=== PATIENT | male | born 1940 | race Caucasian/White ===

== ENCOUNTER → 2021-08-12 | Outpatient (CLI) | payer MEDICARE, SELFPAY ==
--- NOTE | 2021-08-12 08:54 | EKG12_ITS ---
Test Reason : PRE-OP Blood Pressure : / mmHG Vent. Rate : 069 BPM Atrial Rate : 069 BPM P-R Int : 166 ms QRS Dur : 096 ms QT Int : 410 ms P-R-T Axes : -27 -34 -01 degrees QTc Int : 439 ms Normal sinus rhythm Left axis deviation Poor R wave progression Abnormal ECG Confirmed by RAUDEL ALONSO, CHELSEY ([id number]), script editor POLI FLORENTINO ([id number]) on 08/13/2021 10:04:25 AM Referred By: Eliecer Dominique Confirmed By:CHELSEY STARKS MD
== END | disposition home or self-care (01) ==
LOC: PSN 08:51
PROVIDERS: PCP Family Medicine; Referring Provider Urology; Visit Provider Urology
DX: Z01.810 Encounter for preprocedural cardiovascular examination (principal)
CPT/HCPCS: 93005

== ENCOUNTER → 2021-08-26 | Outpatient (CLI) | payer MEDICARE, SELFPAY ==
[2021-08-26 13:04] LABS: Hematocrit 47.7 % (40-54); Hemoglobin 13.4 g/dL (13.0-16.5); Mean Corp Hgb Conc 28.1 g/dL (32-36); Mean Corpuscular Hgb 21.6 pg (27.0-32.0); Mean Corpuscular Volume 76.9 fL (80-94); Platelet Count 365 K/mm3 (150-450); RBC Distribution Width CV 18.5 % (11.6-14.6); RBC Distribution Width SD 48.1 fl (35.1-43.9); White Blood Count 12.9 K/mm3 (4.4-11.0)
[2021-08-26 13:31] LABS: Anion Gap 8 (5-15); BUN 16 mg/dL (7-18); BUN/Creat Ratio 14.5 RATIO (10-20); Calcium,Total 8.7 mg/dL (8.5-10.1); Chloride 108 mmol/L (98-107); EST Glomerular Filtration Rate 68 mL/min (>60); Est Glom Filt Rate - Afr Amer 83 mL/min (>60); Glucose 110 mg/dL (74-106); Potassium 3.9 mmol/L (3.5-5.1); Sodium Level 140 mmol/L (136-145)
== END | disposition home or self-care (01) ==
PROVIDERS: PCP Family Medicine; Referring Provider Urology; Visit Provider Urology
DX: Z01.812 Encounter for preprocedural laboratory examination (principal)
CPT/HCPCS: 36415; 80048; 85027

== ENCOUNTER 2021-08-29 19:48 | Emergency (ER) | payer MEDICARE, SELFPAY ==
[2021-08-29 19:49] VITALS: BP 133/94; PULSE 100; RESP 16; TEMP 36.4; O2SAT 98; BMI 30.7
[2021-08-29] MEDS: Lidocaine 1% (20 ml mdv) 20 ML Vial INFILT (21:40)
--- NOTE | 2021-08-29 21:45 | PCM.PN.GU ---
Subjective Subjective s/p right very large hydrocelectomy today came to ER with bleeding coming from FLORENTINO site and incision site at bedsidem prep and draped scrotum, open incision drained out hematoma and no active bleeding but large hematoma evacuated, FLORENTINO drain in placed, I did identify a bleeding vessel and suture ligated no more bleeding, then closed srotal hematoma in two layers, fluffs and dressing placed follow up next week to d/c FLORENTINO drain, Rx for cipro to gaurd against infection. Objective Data Objective Data Vital Signs: Vital Signs Temp Pulse Resp BP Pulse Ox O2 Del Method 97.5 F L 100 16 133/94 H 98 Room Air 08/29/21 19:49 08/29/21 19:49 08/29/21 19:49 08/29/21 19:49 08/29/21 19:49 08/29/21 19:49 Oxygen Delivery Method Room Air Weight: 83.915 kg Body Mass Index (BMI) 30.7
--- NOTE | 2021-08-29 22:03 | EX.ED.DYSGE1 ---
HPI History of Present Illness Chief Complaint: Wound Informant: patient Onset/Context/Timing Onset: Today Narrative Narrative: Patient presents secondary to scrotal bleeding. He had surgery today for a large right hydrocele. He has a FLORENTINO drain in place. He noted increased bleeding tonight came back in for evaluation. Dr. Dominique had called and let us know to evaluate the wound and call him if there was a complication with the surgical sites. [facility] Medical History Hydrocele Home Medications finasteride 5 mg tablet 5 mg PO DAILY 12/11/16 [History Last Taken Unknown] ciprofloxacin HCl 500 mg tablet (Cipro) 500 mg PO BID #10 tabs 08/29/21 [Rx Last Taken Unknown] Allergy/AdvReac Type Severity Reaction Status Date / Time No Known Allergies Allergy Verified 08/29/21 19:49 Social History Smoking Status: Never smoker ROS ROS ED Constitutional Constitutional ED: Denies chills or fever(s) Eyes Eyes: Denies change in vision or discharge from eye(s) ENT ENT ED: Denies discharge from eye(s), rhinorrhea or sore throat Cardiovascular Cardiovascular: Denies chest pain or palpitations Respiratory/Chest Respiratory/Chest: Denies cough or dyspnea Gastrointestinal Gastrointestinal: Denies abdominal pain, diarrhea, nausea or vomiting Genitourinary Genitourinary ED: Reports other Details: Scrotal bleeding ; Denies difficulty urinating or dysuria Musculoskeletal Musculoskeletal: Denies back pain or extremity pain Integumentary Denies Abrasions or rash Neurologic Neurologic: Denies headache(s) or weakness Psychiatric Psychiatric: Denies anxiety or depression Endocrine Endocrinology: Denies polydipsia or polyuria Allergic/Immunologic Allergic/Immunologic ED: Denies lip swelling or urticaria EXAM Physical Exam Const Vital Signs: 08/29/21 19:49 08/29/21 22:10 08/29/21 22:11 Temperature 97.5 F L Temperature Source Temporal Pulse Rate 100 76 Respiratory Rate 16 18 18 Blood Pressure 133/94 H 138/73 H Blood Pressure Mean 107 Pulse Ox 98 100 100 Oxygen Delivery Method Room Air Positive well nourished and well developed General Appearance ED: well developed HEENT Reports moist mucous membranes Eyes PERRL and EOMs intact bilaterally Neck no lymphadenopathy Chest Wall inspection of chest normal and palpation of chest normal Resp normal respiratory effort and clear to auscultation bilaterally Cardio regular rate and regular rhythm GI normal to inspection, nondistended, normoactive bowel sounds and non-tender Narrative: The surgical incision of the scrotum has dehisced a length of 5 cm. Mild bleeding is noted from the site. FLORENTINO drain is in, but appears to have been pulled out from its original position. Extremity normal to inspection Neuro oriented x3 MDM MDM MDM Narrative Medical decision making narrative: I spoke with Dr. Dominique who presented to the emergency room. He evacuated a hematoma and resutured the wound he has since. Patient be placed on Cipro. Patient is to follow-up with Dr. Dominique as previously planned. Discharge Plan Triage Chief Complaint: Wound ED Provider: Kaila Germain Dx/Rx/DC Orders Clinical Impression: Wound dehiscence Instructions: ED Wound Care Prescriptions: New ciprofloxacin HCl [Cipro] 500 mg tablet 500 mg PO BID Qty: 10 0RF No Action finasteride 5 MG tablet 5 mg PO DAILY Primary Care Provider: Cortez Gaffney Referrals: Eliecer Dominique MD [STAFF PHYSICIAN] - Keep Archie appointment Cortez Gaffney MD [Primary Care Provider] - Disposition Disposition: Home, Self Care Discharge Date/Time: 08/29/21 22:11
[2021-08-29] MEDS: Ciprofloxacin 500 MG Tablet PO (22:08)
[2021-08-29 22:10] VITALS: BP 138/73; PULSE 76; RESP 18; O2SAT 100
[2021-08-29 22:11] VITALS: RESP 18; O2SAT 100
== END 2021-08-29 22:11 | disposition home or self-care (01) ==
PROVIDERS: Emergency Provider Emergency Medicine; PCP Family Medicine; Visit Provider Emergency Medicine
DX: N99.840 Postprocedural hematoma of a genitourinary system organ or structure following a genitourinary system procedure (principal); T81.31XA Disruption of external operation (surgical) wound, not elsewhere classified, initial encounter; X58.XXXA Exposure to other specified factors, initial encounter
CPT/HCPCS: 54700; 99283

== ENCOUNTER 2022-04-27 14:26 | Emergency (ER) | payer MEDICARE, SELFPAY ==
[2022-04-27 14:28] VITALS: BP 175/90; PULSE 88; RESP 18; TEMP 35.9; O2SAT 100
--- NOTE | 2022-04-27 14:35 | RAD_ITS ---
STUDY: X-RAY - RIGHT KNEE REASON FOR EXAM: Male, 81 years old. Pain and swelling. No known injury. TECHNIQUE: 4 view(s) of the knee. COMPARISON: None. FINDINGS: Degenerative spur formation of the anterior distal femur. Normal visualized proximal tibia and fibula. Normal proximal tibiofibular articulation. There is severe degenerative arthrosis of the medial femorotibial compartment with severe joint space narrowing. Normal lateral femorotibial compartment. Normal patellofemoral articulation. Calcification of the medial and lateral menisci in keeping with chondrocalcinosis. Large joint effusion. RAD/Knee 4 or More Views IMPRESSION: Degenerative arthrosis. Large joint effusion. Chondrocalcinosis. Electronically Signed: Rasheed Morris MD at 14:47 EST ,
[2022-04-27 15:50] VITALS: BMI 30.9
--- NOTE | 2022-04-27 16:03 | EDS_ITS ---
HPI History of Present Illness HPI Narrative: Right knee swelling and stiffness. Denies any fall or trauma. He was kneeling on it the other day. Chief Complaint: Lower Extremity Injury Informant: patient Onset/Context/Timing Onset: Today and Yesterday Context: Gradual Onset Timing: Continuous Quality of Pain: Dull and Aching Current Severity: Mild Maximum Severity: Mild Associated Symptoms Associated Symptoms: Negative for Parasthesia, Weakness or Loss of Funtion Narrative Narrative: 81-year-old male states he was kneeling on his knee the other day to do some work. Yesterday he developed swelling to his right knee. Denies any fever or chills. No history of gout. No prior knee surgery. No prior infection. Says he does not feel ill. It is uncomfortable to walk on. He can flex and extend it but it is tight from all the fluid and swelling. Was seen in urgent care and sent to the emergency department. Prior similar symptoms: No Recent Illness/Hospitalization: No PFSH PFSH Medical History BPH (benign prostatic hyperplasia) Hydrocele Home Medications finasteride 5 mg tablet 5 mg PO DAILY 12/11/16 [History Last Taken Unknown] aspirin 81 mg chewable tablet (Aspirin Childrens) 81 mg PO DAILY 04/27/22 [History Last Taken Unknown] hydroxyurea 500 mg capsule 500 mg PO DAILY 04/27/22 [History Last Taken Unknown] tamsulosin 0.4 mg capsule 0.4 mg PO QHS 04/27/22 [History Last Taken Unknown] Allergy/AdvReac Type Severity Reaction Status Date / Time No Known Allergies Allergy Verified 04/27/22 14:28 Social History Smoking Status: Never smoker ROS ROS ED ROS Narrative Denies recent illness. Review of Systems ROS Unobtainable: Denies due to encephalopathy Constitutional Constitutional ED: Denies chills or fever(s) Eyes Eyes: Denies blurry vision ENT ENT ED: Denies ear pain Cardiovascular Cardiovascular: Denies chest pain Respiratory/Chest Respiratory/Chest: Denies cough or dyspnea Gastrointestinal Gastrointestinal: Denies abdominal pain Genitourinary Genitourinary ED: Denies dysuria or hematuria Musculoskeletal Musculoskeletal: Denies arthralgias, back pain, myalgias or neck pain Integumentary Denies abscess or Abrasions Neurologic Neurologic: Denies headache(s) Psychiatric Psychiatric: Denies anxiety Endocrine Endocrinology: Denies polydipsia Hematologic/Lymphatic Hematologic/Lymphatic: Denies easy bleeding Allergic/Immunologic Allergic/Immunologic ED: Denies mouth swelling or tongue swelling EXAM Physical Exam Narrative Exam Narrative: 81-year-old male no acute distress. Vital signs stable afebrile. H EENT exam unremarkable. Lungs clear. Heart regular rhythm no murmur. Abdomen soft nontender. Moving all 4 extremities. His right knee is tender and swollen consistent with an effusion. There is no redness. No significant warmth. Does not appear to be a septic joint. He can flex and extend the knee without severe pain. He has limited range of motion due to the amount of swelling. Right hip ankle and foot are nontender nonswollen. He has normal dorsi plantarflexion. He has no inguinal lymphadenopathy. Left leg is unremarkable. Neurologically he is awake and alert with no focal motor deficits. Const Vital Signs: 04/27/22 14:28 Temperature 96.6 F L Temperature Source Temporal Pulse Rate 88 Respiratory Rate 18 Blood Pressure 175/90 H Blood Pressure Mean 118 Pulse Ox 100 Oxygen Delivery Method Room Air Positive well nourished and well developed; Negative for obese, cachectic, contractures or unkempt General Appearance ED: well developed and NAD; Negative for unkempt, cachectic or contractures Nutritional Appearance: Negative for cachectic or obese HEENT Reports moist mucous membranes normocephalic and atraumatic; Negative for trauma or tenderness Eyes PERRL General Eye ED: Negative for other Neck full ROM and supple Thyroid: Negative for tender Lymph Lymphatic: Negative for other Chest Wall inspection of chest normal and palpation of chest normal Chest: Negative for other Resp normal respiratory effort, no retractions and clear to auscultation bilaterally Effort and Inspection: Negative for pain with movement Auscultation: Negative for rales, rhonchi or wheezes Cardio regular rate, regular rhythm, S1 normal heart sound, S2 normal heart sound and no murmurs Rhythm: Negative for abnormal rhythm GI non-tender, non-distended and no masses Inspection: Negative for abdominal distention Auscultation: normoactive bowel sounds Palpation: soft; Negative for tender or guarding Back/Spine no CVA tenderness Extremity normal to inspection and full ROM Extremity Narrative: Except right knee swollen, mildly tender, with moderate to large effusion. No cellulitis. Clinically does not appear to be a septic joint. He can flex and extend the knee. He did not have severe pain when he does that. Its not par ticularly warm. He has limited range of motion due to the amount of swelling. Calf is nontender. General Extremety ED: Negative for cyanosis General Extremity: Negative for cyanosis Neuro oriented x3, CN's II-XII intact bilaterally and moves all extremities Sensorium / Orientation: alert, oriented to person, oriented to place and oriented to time; Negative for orientation impaired, confused, lethargic or stuporous Motor Exam: strength 5/5 throughout Psych mental status grossly normal Appearance: Negative for unkempt Speech: No other Mood & Affect: Negative for anxious Skin no wounds Lesions: no lesions Rashes: no rashes Trauma: Negative for abrasion, laceration or puncture MDM MDM MDM Narrative Medical decision making narrative: 81-year-old male was kneeling on his knees yesterday during work and today and yesterday developed right knee swelling with moderate to large effusion. Clinically this does not appear to be infected. X-ray was obtained shows moderate to severe arthritis of his knee with joint space narrowing medially. Discussed with the patient options. He did choose to have a knee joint injection with lidocaine and Kenalog. Post arthrocentesis the fluid was cloudy and bloody. Awaiting the arthrocentesis joint fluid results including Gram stain, cell count and crystals before any joint injection would be done. Those results are pending. I checked the patient out to the afternoon physician or check those results and then determine tension pneumothorax if the patient will get a knee joint injection. Clinically this appears to be an arthritic effusion and not a septic joint however awaiting the fluid results. Radiography Diagnostic Testing: Clinical Impression(s) from Imaging Studies Knee X-Ray 04/27/22 14:35 IMPRESSION: Degenerative arthrosis. Large joint effusion. Chondrocalcinosis. Electronically Signed: Rasheed Morris MD at 14:47 EST , Right knee x-ray, 4 views, interpreted both by the radiologist and myself shows significant degenerative arthritis with medial joint space narrowing. Moderate to large joint effusion. Chronic changes. Procedures Other Procedures Procedure(s): Patient has a right knee effusion. Knee was cleaned using alcohol swabs then iodine. On a medial approach I went into the knee joint was able to pull out 4 cc of cloudy and mildly bloody straw-colored fluid. No malena pus. Patient tolerated procedure well. It was sent for Gram stain, culture and cell counts. Also crystals. Discharge Plan Triage Chief Complaint: Lower Extremity Injury ED Provider: Willie Alexandre Dx/Rx/DC Orders Clinical Impression: Effusion of knee joint right, Arthritis of knee Instructions: Osteoarthritis: Common Sites, ED Knee Effusion Prescriptions: No Action finasteride 5 MG tablet 5 mg PO DAILY hydroxyurea 500 mg capsule 500 mg PO DAILY tamsulosin 0.4 mg capsule 0.4 mg PO QHS Label Comments: TAKE 1 CAPSULE BY MOUTH AT BEDTIME aspirin [Aspirin Childrens] 81 mg Tablet,Chewable 81 mg PO DAILY Primary Care Provider: Cortez Gaffney Referrals: Cortez Gaffney MD [Primary Care Provider] - 3-5 Days if not improving Activity Restrictions/Additional Instructions: Ice and elevate your knee to decrease pain and swelling. Tylenol for pain and Motrin for pain and swelling. No more than 2 Motrin 3 times a day for a week. Return immediately if you develop a fever or severe redness or worsening pain. This appears to be arthritis and swelling in your knee caused by arthritis and kneeling. The injection I did should decrease the pain and swelling over the next several days to weeks. Patient Follow-up with your primary care physician or follow-up with a local orthopedic doctor, Dr. Brendan Ley, for possible evaluation of the right knee replacement. Disposition Disposition: Home, Self Care
[2022-04-27] MEDS: Triamcinolone Acetonide 40 MG/ML Vial INTRAARTIC (16:40)
[2022-04-27] MEDS: Lidocaine 1% (20 ml mdv) 20 ML Vial 10 ML INFILT (16:40)
[2022-04-27 16:55] LABS: Pathologist Comment May follow
[2022-04-27 17:34] LABS: Synovial Fld Mononuclear WBC # 2.716 10^3/ul; Synovial Fld Mononuclear WBC % 14.9 %; Synovial Fld Polynuclear WBC % 85.1 %
[2022-04-27 17:44] LABS: AUTO B FLUID DILUENT BKGD CT WBC <0.1 RBC <0.01 (W<.1,R<.01); RBC /Synovial Fluid 0.013 10^6/uL (0); Source / Synovial Fluid RT KNEE; Source- Body Fluid SYNOVIAL; Viscosity / Synovial Fluid Sl. Viscous (HIGH)
--- NOTE | 2022-04-27 18:19 | NURSING ---
Pt walked out of room demanding to leave stating he has been waiting over an hour without getting his pain shot. This RN explained that we are waiting on lab results to ensure that knee is not infected prior to giving the pain shot. Pt upset that it's taking so long and wants to leave. This RN informed pt that md would be notified. MD and RN in to speak with pt to again explain the delay and why it is necessary to wait for results before giving pain shot.
[2022-04-27 18:31] LABS: Appearance /Synovial Fluid Cloudy (CLEAR); Monocyte /Synovial Fluid 17 %; Neutrophil 83 % (0-25)
[2022-04-27 18:32] LABS: Color / Synovial Fluid Yellow (Pale Yellow)
[2022-04-27 18:35] LABS: CRYSTALS, BODY FLUID NO CRYSTALS SEEN
[2022-04-28 13:11] LABS: Pathologist Review Reviewed
== END 2022-04-27 19:03 | disposition home or self-care (01) ==
PROVIDERS: Emergency Provider Emergency Medicine; PCP Family Medicine; Visit Provider Emergency Medicine
DX: M25.461 Effusion, right knee (principal); M17.11 Unilateral primary osteoarthritis, right knee; N40.0 Benign prostatic hyperplasia without lower urinary tract symptoms; Z79.899 Other long term (current) drug therapy; Z79.82 Long term (current) use of aspirin
CPT/HCPCS: 73564; 87070; 87075; 87205; 89050; 89051; 89060; 99282

== ENCOUNTER 2024-02-29 19:06 | Emergency (ER) | payer MEDICARE, SELFPAY ==
[2024-02-29 19:07] VITALS: BP 121/74; PULSE 52; RESP 21; TEMP 36.6; O2SAT 94; BMI 34.1
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
--- NOTE | 2024-02-29 19:12 | EKG12_ITS ---
Test Reason : DYSRHYTHMIA Blood Pressure : */* mmHG Vent. Rate : 51 BPM Atrial Rate : 51 BPM P-R Int : 194 ms QRS Dur : 92 ms QT Int : 488 ms P-R-T Axes : 10 -30 48 degrees QTcB Int : 449 ms Sinus bradycardia Left axis deviation Abnormal ECG Confirmed by SARA DODGE MD ([id number]), graphic editor TARSHA CORNELIUS ([id number]) on 03/02/2024 6:13:44 AM Referred By: Confirmed By: SARA DODGE MD
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
[2024-02-29 19:36] VITALS: BP 142/81; PULSE 52; RESP 24; O2SAT 100
[2024-02-29] MEDS: Ondansetron 4 MG/2 ML Vial IV (19:39)
[2024-02-29] MEDS: Morphine 4 MG/ML Syringe IV ×3 (19:39→20:40)
[2024-02-29] MEDS: Diphth,Pertuss(Acell),Tet Vac 0.5 ML Vial IM (19:44)
[2024-02-29 19:51] LABS: Absolute Lymphocyte Count 1.76 X10^3/uL (0.83-4.51); Absolute Neutrophil Count 5.8 X10^3/uL (2.0-7.7); Basophil# 0.11 X10^3/uL; Basophil% 1.3 % (0-1); Eosinophil# 0.12 X10^3/uL; Eosinophils% 1.4 % (0-5); Hematocrit 43.1 % (40-54); Hemoglobin 12.7 g/dL (13.0-16.5); Lymphocyte # 1.76 X10^3/ul (0.83-4.51); Mean Corp Hgb Conc 29.5 g/dL (32-36); Mean Corpuscular Hgb 26.5 pg (27.0-32.0); Monocyte# 0.85 X10^3/uL; Monocyte% 9.7 % (0-10); NRBC Flagged by Analyzer 0 % (0-5); Neutrophil # 5.83 X10^3/uL (2.7-7.7); Neutrophil % 66.2 % (47-70); Platelet Count 228 K/mm3 (150-450); RBC Distribution Width CV 15.8 % (11.6-14.6); Red Blood Count 4.79 M/mm3 (4.6-6.2); White Blood Count 8.8 K/mm3 (4.4-11.0)
[2024-02-29] MEDS: Cefazolin 2 GM in Syringe IV (19:52)
[2024-02-29 19:53] LABS: Bacteria 0 SEEN /hpf (None Seen); Mucous, Urine 0 SEEN /hpf (<or=2+); Red Blood Cells-Urine 0 SEEN /hpf (0-5); Squamous Epithelial Cells - UA 0 SEEN /hpf (0-5); White Blood Cells 0 SEEN /hpf (0-5)
[2024-02-29 19:53] LABS: International Normalized Ratio 1.1
[2024-02-29 19:54] LABS: Partial Thromboplast Time 26.7 Seconds (24.1-36.2)
[2024-02-29 19:57] LABS: Color, Urine Yellow (Yellow); Glucose, Dipstick Normal (Normal); Ketone-Dipstick Negative (Negative); Leukocyte Esterase-Dipstick Negative /ul (Negative); Nitrite-Dipstick Negative (Negative); Occult Blood-Urine 10 /ul (Negative); Protein-Dipstick 30 mg/dl (Negative); Specific Gravity, Urine 1.015 (1.002-1.030); Urine Bilirubin Dipstick Negative (Negative); Urine Clarity Clear (Clear); Urine Urobilinogen Normal (Normal)
[2024-02-29 20:01] LABS: AST(SGOT) 29 U/L (15-37); Alanine Aminotransfer ALT/SGPT 24 U/L (16-61); Albumin, Serum 3.4 g/dL (3.2-5.0); Alkaline Phosphatase 87 U/L (45-117); Anion Gap 7 (5-15); BUN 16 mg/dL (7-18); Bilirubin, Direct 0.13 mg/dL (0.00-0.30); Calcium,Total 8.9 mg/dL (8.5-10.1); Chloride 110 mmol/L (98-107); Creatinine, Serum 1.23 mg/dL (0.70-1.30); EST Glomerular Filtration Rate 60 mL/min (>60); Est Glom Filt Rate - Afr Amer 72 mL/min (>60); Estimated Creatinine Clearance 48.49 ml/min; Glucose 107 mg/dL (74-106); Potassium 3.7 mmol/L (3.5-5.1); Protein, Total 6.4 g/dL (6.4-8.2); Sodium Level 142 mmol/L (136-145)
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
[2024-02-29 20:05] VITALS: BP 120/80; PULSE 53; RESP 15; TEMP 36.6; O2SAT 100
[2024-02-29 20:06] VITALS: BP 129/84; PULSE 57; RESP 25; O2SAT 95
[2024-02-29 20:30] VITALS: BP 145/80; PULSE 62; RESP 14; O2SAT 96
[2024-02-29 20:42] LABS: Blood Gas Specimen Type VEN; O2 Delivery Device Room Air; SITE Not entered; VBG BASE EXCESS -4 mmol/L (-1.0-3.5); VBG Bicarbonate 20 mmol/L (22-26); VBG PO2 55 mmHg (25-40); VBG SO2 91 % (50-70); VBG TCO2 21 mmol/L (23-33); VBG pCO2 25.8 mmHg (41-51); VBG pH 7.49 (7.32-7.42)
== END 2024-02-29 20:56 | disposition short-term general hospital (02) ==
PROVIDERS: Emergency Provider Emergency Medicine; PCP Family Medicine; Visit Provider Emergency Medicine
DX: S82.251B Displaced comminuted fracture of shaft of right tibia, initial encounter for open fracture type I or II (principal); S32.012A Unstable burst fracture of first lumbar vertebra, initial encounter for closed fracture; S32.022A Unstable burst fracture of second lumbar vertebra, initial encounter for closed fracture; S32.10XA Unspecified fracture of sacrum, initial encounter for closed fracture; S82.831B Other fracture of upper and lower end of right fibula, initial encounter for open fracture type I or II; S16.1XXA Strain of muscle, fascia and tendon at neck level, initial encounter; S36.892A Contusion of other intra-abdominal organs, initial encounter; V03.10XA Pedestrian on foot injured in collision with car, pick-up truck or van in traffic accident, initial encounter
CPT/HCPCS: 51702; 70450; 71250; 72125; 73590; 74176; 80048; 80076; 81001; 82077; 82803; 85025; 85610; 85730; 90715; 93005; 96374; 96375; 96376; 99285; A4216; J2405

== ENCOUNTER 2024-04-26 10:11 | Outpatient (RCR) | payer MEDICARE, SELFPAY ==
[2024-04-26 10:39] VITALS: BP 122/77; PULSE 71; RESP 18; TEMP 36.3; BMI 28.2
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
--- NOTE | 2024-04-26 12:29 | RAD_ITS ---
PROCEDURE: Right tibia/fibula radiographs, three views REASON FOR EXAM: Osteomyelitis. Infected wound TECHNIQUE: Three views of the right tibia/fibula were obtained. COMPARISON: 02/29/2024 FINDINGS: Three views of the right tibia/fibula were obtained. The bones are osteopenic. Moderate tricompartmental degenerative changes of the right knee. Nondisplaced fractures of the mid and proximal right fibular diaphysis, similar to the previous study. Some callus formation or bone remodeling associated with the mid right fibular diaphyseal fracture is similar. Interval placement of a right tibial intramedullary bren. The alignment of the fracture fragments of the mid tibial diaphyseal fracture are in near anatomic alignment. There is slight anterior angulation of the distal fracture fragment on the lateral view as well as 2 mm of posterior displacement. There is some lucency at the fracture margins of the mid tibial diaphysis. RAD/Tibia & Fibula 2 Views IMPRESSION: Osteopenia. Interval placement of tibial intramedullary bren. Alignment of the major fracture fragments of the right tibia and fibula are dino rly anatomic. There is some lucency at the fracture site of the mid right tibial diaphysis, w hich could represent a component of osteolysis versus osteomyelitis. Reading Location: [facility]
[2024-04-26 12:48] LABS: Hematocrit 43.1 % (40-54); Hemoglobin 12.9 g/dL (13.0-16.5); Mean Corp Hgb Conc 29.9 g/dL (32-36); Mean Corpuscular Hgb 26.3 pg (27.0-32.0); Mean Platelet Vol. 10.6 fl (6.2-12.0); Platelet Count 713 K/mm3 (150-450); RBC Distribution Width CV 16.9 % (11.6-14.6); RBC Distribution Width SD 54.4 fl (35.1-43.9); White Blood Count 10.4 K/mm3 (4.4-11.0)
[2024-04-27 13:08] LABS: Prealbumin 15 mg/dL (9-32)
--- NOTE | 2024-04-27 13:11 | WC ---
ALAN SOLE BUFFER REVIEWED PT'S LABS. N.O. TO START OTC IRON 65MG PO BID. ENCOURAGE FLUIDS LIKE ELECTROLYTE ONCE DAILY. ALSO REVIEWED XRAY. N.O. FOR MRI. CARRI NURSE UPDATED. ATTEMPTED TO NOTIFY PT BY CELL. NO ANSWER. NO VM. [facility] WILL ALSO NOTIFY HIM.
--- NOTE | 2024-05-01 13:15 | WC ---
WOUND CULTURES REVIEWED PER ALAN MORROW LEAD ELECTRICIAN. N.O. TO START LEVAQUIN IN ADDITION TO CURRENT METRONIDAZOLE. ALLERGIES VERIFIED. CALLED ORDER TO SUNITA (NURSE @ [place]). ATTEMPTED TO NOTIFY PT ALSO- NO ANSWER, NO VM AVAILABLE. PREALBUMIN LAB ALSO REVIEWED AND WNL.
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
== END 2024-04-28 23:59 | disposition home or self-care (01) ==
LOC: WC 10:11
PROVIDERS: PCP Family Medicine; Referring Provider Internal Medicine; Visit Provider Nurse Practitioner
DX: L97.812 Non-pressure chronic ulcer of other part of right lower leg with fat layer exposed (principal); L08.9 Local infection of the skin and subcutaneous tissue, unspecified; T81.31XS Disruption of external operation (surgical) wound, not elsewhere classified, sequela; V40 Car occupant injured in collision with pedestrian or animal; N40.0 Benign prostatic hyperplasia without lower urinary tract symptoms; R60.0 Localized edema; Z79.82 Long term (current) use of aspirin; Z79.899 Other long term (current) drug therapy; Z86.718 Personal history of other venous thrombosis and embolism; Z87.891 Personal history of nicotine dependence
CPT/HCPCS: 11043; 36415; 73590; 84134; 85027; 87070; 87075; 87077; 87186; 87205; 99214; G0463

== ENCOUNTER → 2024-05-18 | Outpatient (CLI) | payer MEDICARE, SELFPAY ==
--- NOTE | 2024-05-18 12:31 | MRI_ITS ---
PROCEDURE: LOWER EXT/NO JT/W/O 05/18/2024 REASON FOR EXAM: RT CALF,OSTEOMYELITIS,INFECTION, RT CORTEZ OPEN WOUND TECHNIQUE: MRI of the right leg without contrast COMPARISON: Right tibia and fibula date 04/26/2024. FINDINGS Skin markers are seen at the medial right mid leg. These markers appear to overlie an area skin ulceration. Although there is some metallic artifact due to the presence of the intramedullary nail with proximal and distal interlocking screws at the right tibia, no area of abnormal osseous signal is clearly identified. No abscess formation is noted. No free or loculated fluid collection is seen. MRI/Lower Ext/No Jt/w/o IMPRESSION: No findings are seen to suggest the presence of osteomyelitis or abscess format ion. Reading Location: [id number]
== END | disposition home or self-care (01) ==
PROVIDERS: PCP Family Medicine; Referring Provider Nurse Practitioner; Visit Provider Nurse Practitioner
DX: M86.9 Osteomyelitis, unspecified (principal); S81.801A Unspecified open wound, right lower leg, initial encounter; X58.XXXA Exposure to other specified factors, initial encounter
CPT/HCPCS: 73718

== ENCOUNTER 2024-05-24 09:30 | Outpatient (RCR) | payer MEDICARE, SELFPAY ==
[2024-04-29 01:35] VITALS: BP 122/77; PULSE 71; RESP 18; TEMP 36.3; BMI 28.2
[2024-05-03 07:59] VITALS: BP 134/75; PULSE 53; TEMP 36.2; BMI 28.2
--- NOTE | 2024-05-03 14:42 | WC ---
PHOTO 05/03/24 RIGHT CORTEZ
--- NOTE | 2024-05-03 14:45 | WC ---
PHOTO 05/03/24 RIGHT CORTEZ
[2024-05-10 09:10] VITALS: BP 135/70; PULSE 55; RESP 18; TEMP 36.2; BMI 28.2
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
--- NOTE | 2024-05-11 09:41 | WC ---
PHOTO 05/10/24 RIGHT CORTEZ
[2024-05-17 09:30] VITALS: BP 122/65; PULSE 64; RESP 18; TEMP 36.2; BMI 28.2
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
[2024-05-24 09:20] VITALS: BP 126/67; PULSE 68; RESP 16; TEMP 36.3; BMI 28.2
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
== END 2024-05-29 23:59 | disposition home or self-care (01) ==
LOC: WC 09:30
PROVIDERS: PCP Family Medicine; Referring Provider Internal Medicine; Visit Provider Nurse Practitioner
DX: T81.329A Deep disruption or dehiscence of operation wound, unspecified, initial encounter (principal); L97.812 Non-pressure chronic ulcer of other part of right lower leg with fat layer exposed; L08.9 Local infection of the skin and subcutaneous tissue, unspecified; V40 Car occupant injured in collision with pedestrian or animal; D50.9 Iron deficiency anemia, unspecified; R60.0 Localized edema; Z79.82 Long term (current) use of aspirin
CPT/HCPCS: 11042; 11043

== ENCOUNTER 2024-06-10 13:40 | Emergency (ER) | payer MEDICARE, SELFPAY ==
[2024-06-10 13:40] VITALS: BP 138/86; PULSE 106; RESP 16; TEMP 36.6; O2SAT 98
[2024-06-10 13:44] VITALS: BP 138/86; PULSE 105; RESP 18; TEMP 36.6; O2SAT 98; BMI 26.9
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
[2024-06-10] MEDS: Cephalexin 250 MG Capsule 500 MG PO (14:13)
[2024-06-10] MEDS: Smz/Tmp Ds Tablet 1 TABLET PO (14:14)
== END 2024-06-10 14:59 | disposition home or self-care (01) ==
LOC: ED 14:24
PROVIDERS: Emergency Provider Emergency Medicine; PCP Internal Medicine; Visit Provider Emergency Medicine
DX: L03.115 Cellulitis of right lower limb (principal); L97.819 Non-pressure chronic ulcer of other part of right lower leg with unspecified severity; Z79.01 Long term (current) use of anticoagulants; Z86.718 Personal history of other venous thrombosis and embolism; Z87.891 Personal history of nicotine dependence
CPT/HCPCS: 99283

== ENCOUNTER 2024-06-28 09:30 | Outpatient (RCR) | payer MEDICARE, SELFPAY ==
[2024-05-30 00:49] VITALS: BP 126/67; PULSE 68; RESP 16; TEMP 36.3; BMI 28.2
[2024-05-31 09:29] VITALS: BP 146/83; RESP 18; TEMP 18.8; BMI 28.2
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
--- NOTE | 2024-06-01 09:59 | WC ---
PHOTO 05/31/24 RIGHT CORTEZ
[2024-06-07 10:00] VITALS: BP 145/79; PULSE 66; RESP 18; TEMP 36.3; BMI 28.2
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
--- NOTE | 2024-06-08 10:52 | WC ---
PHOTO 06/07/24 RIGHT CORTEZ
[2024-06-14 09:33] VITALS: BP 127/77; PULSE 64; RESP 18; TEMP 36.7; BMI 28.2
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
[2024-06-21 10:12] VITALS: BP 128/64; PULSE 53; RESP 18; TEMP 35.7; BMI 28.2
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
[2024-06-28 09:37] VITALS: BP 115/68; PULSE 55; RESP 18; TEMP 36.1; BMI 28.2
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
--- NOTE | 2024-06-28 13:40 | WC ---
PHOTO 06/28/24 RIGHT CORTEZ
== END 2024-06-28 23:59 | disposition home or self-care (01) ==
LOC: WC 09:30
PROVIDERS: PCP Family Medicine; Referring Provider Internal Medicine; Visit Provider Nurse Practitioner
DX: T81.329A Deep disruption or dehiscence of operation wound, unspecified, initial encounter (principal); L97.812 Non-pressure chronic ulcer of other part of right lower leg with fat layer exposed; L08.9 Local infection of the skin and subcutaneous tissue, unspecified; V40 Car occupant injured in collision with pedestrian or animal; D50.9 Iron deficiency anemia, unspecified; R60.0 Localized edema; Z79.82 Long term (current) use of aspirin; Z79.899 Other long term (current) drug therapy
CPT/HCPCS: 11042; 87070; 87205

== ENCOUNTER 2024-07-26 09:30 | Outpatient (RCR) | payer MEDICARE, SELFPAY ==
[2024-06-29 00:18] VITALS: BP 115/68; PULSE 55; RESP 18; TEMP 36.1; BMI 28.2
[2024-07-05 09:31] VITALS: BP 132/69; PULSE 60; RESP 18; TEMP 36.3; BMI 28.2
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
[2024-07-12 09:48] VITALS: BP 134/75; PULSE 60; RESP 18; TEMP 35.7; BMI 28.2
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
--- NOTE | 2024-07-12 13:32 | WC ---
PHOTO 07/12/24 RIGHT CORTEZ
[2024-07-26 09:55] VITALS: BP 111/65; PULSE 53; RESP 14; TEMP 35.9; BMI 28.2
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
== END 2024-07-29 23:59 | disposition home or self-care (01) ==
LOC: WC 09:30
PROVIDERS: PCP Family Medicine; Referring Provider Internal Medicine; Visit Provider Nurse Practitioner
DX: T81.329A Deep disruption or dehiscence of operation wound, unspecified, initial encounter (principal); L97.821 Non-pressure chronic ulcer of other part of left lower leg limited to breakdown of skin; S81.801S Unspecified open wound, right lower leg, sequela; V40 Car occupant injured in collision with pedestrian or animal; L08.9 Local infection of the skin and subcutaneous tissue, unspecified; R60.0 Localized edema; Z79.82 Long term (current) use of aspirin; Z79.899 Other long term (current) drug therapy
CPT/HCPCS: 11042

== ENCOUNTER 2024-08-02 10:06 | Outpatient (RCR) | payer MEDICARE, SELFPAY ==
[2024-07-30 00:31] VITALS: BP 111/65; PULSE 53; RESP 14; TEMP 35.9; BMI 28.2
[2024-08-02 10:11] VITALS: BP 141/84; PULSE 54; RESP 18; TEMP 36.4; BMI 28.2
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
== END 2024-08-28 23:59 | disposition skilled nursing facility (03) ==
LOC: WC 10:06
PROVIDERS: PCP Family Medicine; Referring Provider Internal Medicine; Visit Provider Nurse Practitioner
DX: Z09 Encounter for follow-up examination after completed treatment for conditions other than malignant neoplasm (principal); R60.0 Localized edema
CPT/HCPCS: 99212; G0463